=== PATIENT | male | born 1940 | race Caucasian/White ===

== ENCOUNTER 2018-03-20 19:44 | Inpatient (IN) | payer MEDICARE ==
[~2018-03-20] VITALS: Ht 175.3 cm; Wt 64.9 kg
[~2018-03-20 19:44] MED LIST: ACET325T53 PO; ALBU2.5V38 IH; ASPI-869 PO; BETH50TA PO; GLIP5TAB13 PO; LISI-607 PO; METF500T6 PO; PANT40TA4 PO; QUET25TA PO; QUET50TA PO; TAMS0.4C34 PO
[2018-03-20] MEDS ORDERED: IV NS 0.9% 1,000 ML BAG IV ONE (20:00)
--- NOTE | 2018-03-20 20:00 | NUR ---
BB AMBULANCE FROM [facility] C/C "UNWITNESSE GLF WITH NO OBVIOUS DEFORMITIES NOTED. PT IS AAOX1 AND CONFUSED AT BASELINE. SKIN WNL. VSS. NO S/S OF ACUTE DISTRESS NOTED. RESP EVEN AND UNLABORED. PT PLACED ON PLANT CONTROLS SPECIALIST AND POX. PT SAFETY AND COMFORT MEASURES IN PLACE. UNABLE TO ATTAIN MORE INFORMATION ON THE PT. MD BEDSIDE FOR EVAL. WILL CONTINUE TO MONITOR PT
[2018-03-20 20:20] LABS: BASOPHILS % (AUTO) 0.4 % (0.0-2.0); EOSINOPHILS % (AUTO) 3.3 % (0.0-6.0); HEMATOCRIT 34 % (39-51); HEMOGLOBIN 11.3 g/dL (13.5-17.5); LYMPHOCYTES # (AUTO) 1.1 /CMM (0.8-4.8); LYMPHOCYTES % (AUTO) 10.7 % (20.0-44.0); MEAN CORPUSCULAR HEMOGLOBIN 29 PG (26.0-33.0); MEAN CORPUSCULAR HGB CONC 34 g/dl (31.0-36.0); MEAN CORPUSCULAR VOLUME 87 fL (80-96); MONOCYTES # (AUTO) 0.8 /CMM (0.1-1.30); MONOCYTES % (AUTO) 7.1 % (2.0-12.0); NEUTROPHILS # (AUTO) 8.4 /CMM (1.8-8.9); NEUTROPHILS % (AUTO) 78.5 % (43.0-81.0); PLATELET COUNT (AUTO) 235 /CMM (150-450); RED BLOOD CELL COUNT(AUTO) 3.86 MIL/uL (4.5-6.0); WHITE BLOOD COUNT (AUTO) 10.7 K/uL (4.3-11.0)
[2018-03-20 20:37] LABS: CALCIUM, SERUM 8.8 mg/dL (8.5-10.1); CARBON DIOXIDE 27 mmol/L (21-32); CHLORIDE 104 mmol/L (98-107); CREATININE 0.7 mg/dL (0.6-1.3); GLUCOSE 123 mg/dL (74-106); INR 1.01 (0.85-1.15); SODIUM SERUM 135 mmol/L (136-145); UREA NITROGEN, BLOOD 19 mg/dL (7-18)
[2018-03-20 20:39] LABS: TROPONIN I < 0.017 ng/mL (0.00-0.056)
[2018-03-20] MEDS ORDERED: ALBUTEROL FS 2.5 MG/3 ML VIAL.NEB NEB PRN (21:30)
[2018-03-20] MEDS ORDERED: QUETIAPINE FUMARATE 25 MG TABLET PO PRN (21:30)
[2018-03-20] MEDS ORDERED: IV NS 0.9% 1,000 ML IV PRN (21:31)
[2018-03-20] MEDS ORDERED: Z GUARD REMEDY 2 OZ OINT TP PRN (22:00)
[2018-03-20] MEDS ORDERED: MAG HYDROX/AL HYDROX/SIMETH 30 ML UDC PO PRN (22:00)
[2018-03-20] MEDS ORDERED: HYDROCODONE/APAP 5/325MG 1 EACH TABLET PO PRN (22:00)
[2018-03-20] MEDS ORDERED: ONDANSETRON HCL/PF 4 MG/2 ML VIAL IVP PRN (22:00)
[2018-03-20] MEDS ORDERED: ZOLPIDEM TARTRATE 5 MG TABLET PO PRN (22:00)
[2018-03-20] MEDS ORDERED: ACETAMINOPHEN 325 MG TABLET PO PRN (22:00)
[2018-03-20] MEDS ORDERED: MAGNESIUM HYDROXIDE 30 ML UDC PO PRN (22:00)
--- NOTE | 2018-03-20 22:16 | NUR ---
REPORT GIVEN TO RATTLESNAKE FARMER HELEN FOR ROSIE
--- NOTE | 2018-03-20 22:46 | NUR ---
TELE/RN NOTES RECEIVED PT. FROM ER VIA BERT. PT. IS AWAKE, ALERT AND ORIENTED TO SELF. BREATHING EVEN AND UNLABORED ON ROOM AIR. NO SOB, RESPIRATORY DISTRESS OR COMPLAINTS OF PAIN NOTED AT THIS TIME. ORIENTED PT. TO ROOM. PLACED EXTERNAL CLOTH WEAVER ON PT. CURRENT RHYTHM = SINUS RHYTHM HR 68. PT. WITH RIGHT FOREARM 18 GAUGE IV SALINE LOCK PRESENT, PATENT AND INTACT. BED LOCKED AND IN LOWEST POSITION, SIDE RAILS UP X3, BED ALARM ON, WILL CONTINUE TO MONITOR.
[2018-03-20 22:50] VITALS: BP 150/83
[2018-03-20] MEDS: TAMSULOSIN 0.4 MG CAP.SR.24H PO SCH (23:08)
[2018-03-20] MEDS: QUETIAPINE FUMARATE 25 MG TABLET PO SCH (23:08)
[2018-03-20] MEDS: ENOXAPARIN SODIUM 40 MG/0.4 ML DISP.SYRIN SQ SCH (23:09)
--- NOTE | 2018-03-21 03:24 | NUR ---
TELE/RN NOTES CALLED AND NOTIFIED EPIC SLITTER CREASER SLOTTER OPERATOR DR. OLIVEIRA PT. IS VERY CONFUSED AND ATTEMPTING TO GET OUT OF BED. PER DR. OLIVEIRA NEW ORDER: 1:1 SITTER. WILL CARRY OUT ORDER. WILL CONTINUE TO MONITOR.
[2018-03-21 04:00] VITALS: BP 111/68
--- NOTE | 2018-03-21 07:01 | NUR ---
TELE/RN NOTES PT. IS LYING IN BED RESTING. PT. IS EASILY AROUSABLE TO NAME.BREATHING EVEN AND UNLABORED ON ROOM AIR. NO SOB, RESPIRATORY DISTRESS OR COMPLAINTS OF PAIN NOTED AT THIS TIME AND THROUGHOUT SHIFT. PT. WITH EXTERNAL SHEAR ASSEMBLER PRESENT AND INTACT CURRENT RHYTHM = SINUS RHYTHM HR 70. PT. WITH RIGHT FOREARM 18 GAUGE PERIPHERAL IV PRESENT, PATENT AND INTACT ADMINISTERING TO PT. NS @ 75 ML/HR. ALL PT. NEEDS MET. PT. WITH 1:1 SITTER PRESENT AT BEDSIDE. BED LOCKED AND IN LOWEST POSITION, SIDE RAILS UP X3, BED ALARM ON, WILL ENDORSE TO DAYSHIFT NURSE FOR CONTINUITY OF CARE.
[2018-03-21 07:18] LABS: BASOPHILS % (AUTO) 0.8 % (0.0-2.0); EOSINOPHILS % (AUTO) 7.1 % (0.0-6.0); HEMATOCRIT 30 % (39-51); HEMOGLOBIN 9.9 g/dL (13.5-17.5); LYMPHOCYTES # (AUTO) 1.1 /CMM (0.8-4.8); LYMPHOCYTES % (AUTO) 19.5 % (20.0-44.0); MEAN CORPUSCULAR HEMOGLOBIN 30 PG (26.0-33.0); MEAN CORPUSCULAR HGB CONC 33 g/dl (31.0-36.0); MEAN CORPUSCULAR VOLUME 89 fL (80-96); MONOCYTES # (AUTO) 0.4 /CMM (0.1-1.30); MONOCYTES % (AUTO) 7.3 % (2.0-12.0); NEUTROPHILS # (AUTO) 3.8 /CMM (1.8-8.9); NEUTROPHILS % (AUTO) 65.3 % (43.0-81.0); PLATELET COUNT (AUTO) 222 /CMM (150-450); RDW COEFFICIENT OF VARIATION 14.6 (11.5-15.0); RED BLOOD CELL COUNT(AUTO) 3.35 MIL/uL (4.5-6.0); WHITE BLOOD COUNT (AUTO) 5.9 K/uL (4.3-11.0)
[2018-03-21 07:42] LABS: CARBON DIOXIDE 26 mmol/L (21-32); CHLORIDE 107 mmol/L (98-107); CREATININE 0.7 mg/dL (0.6-1.3); GLUCOSE 90 mg/dL (74-106); MAGNESIUM 1.9 mg/dL (1.8-2.4); PHOSPHORUS 3.2 mg/dL (2.5-4.9); POTASSIUM 3.7 mmol/L (3.5-5.1); SODIUM SERUM 140 mmol/L (136-145); UREA NITROGEN, BLOOD 14 mg/dL (7-18)
[2018-03-21 07:52] LABS: CHOLESTEROL 144 mg/dL (<200); HDL CHOLESTEROL 49 mg/dL (40-60); LDL 87 mg/dL (0-99); THYROID STIMULATING HORMONE 3.962 uIU/mL (0.358-3.74); TRIGLYCERIDES 50 mg/dL (30-150)
[2018-03-21 08:00] VITALS: BP 113/65
--- NOTE | 2018-03-21 08:00 | NUR ---
TELE/RN AM NOTES PT. IS LYING IN BED RESTING. PT. IS EASILY AROUSABLE TO NAME.BREATHING EVEN AND UNLABORED ON ROOM AIR. NO SOB, RESPIRATORY DISTRESS OR COMPLAINTS OF PAIN NOTED.PT. WITH EXTERNAL LIQUOR RECTIFIER PRESENT AND INTACT CURRENT RHYTHM = SINUS RHYTHM HR 68. PT. WITH RIGHT FOREARM 18 GAUGE PERIPHERAL IV PRESENT, PATENT AND INTACT ADMINISTERING TO PT. NS @ 75 ML/HR. ALL PT. NEEDS ATTENDED.PT. WITH 1:1 SITTER PRESENT AT BEDSIDE. BED LOCKED AND IN LOWEST POSITION, SIDE RAILS UP X3, BED ALARM ON
[2018-03-21 08:16] LABS: IRON, SERUM 30 ug/dl (50-175); TOTAL IRON BINDING CAPACITY 194 ug/dl (250-450)
[2018-03-21] MEDS: BETHANECHOL CHLORIDE (25 MG) 25 MG TABLET PO SCH ×3 (08:24→17:40)
[2018-03-21] MEDS: glipiZIDE 5 MG TABLET PO SCH (08:25)
[2018-03-21] MEDS: ASPIRIN EC 325 MG TABLET.DR PO SCH (08:25)
[2018-03-21] MEDS: LISINOPRIL (5MG) 5 MG TABLET PO SCH (08:25)
[2018-03-21] MEDS: METFORMIN 500 MG TABLET PO SCH ×2 (08:25→17:40)
[2018-03-21 09:57] LABS: FERRITIN 316 ng/mL (8-388); TROPONIN I < 0.017 ng/mL (0.00-0.056)
[2018-03-21] MEDS: IV NS 0.9% 1,000 ML IV PRN ×2 (11:22→21:51)
[2018-03-21 12:00] VITALS: BP 121/64
[2018-03-21 16:00] VITALS: BP 132/69
--- NOTE | 2018-03-21 19:56 | NUR ---
MS FRANCY INITIAL NOTES SEEN PT AWAKE AND ALERT LYING IN BED WITHOUT ANY DISCOMFORT OR ANY AGITATION NOTED AT THIS TIME. IVF NS INFUSING ON HIS RIGHT FOREARM PATENT AND INTACT. KEPT HIM WARM AND COMFORTABLE AT ALL TIMES. WILL CONTINUE MONITORING. SITTER AT THE BEDSIDE FOR PT SAFETY.
[2018-03-21 20:00] VITALS: BP_SYST 110; BP_SYST 124; BP_SYST 133; BP_DIAS 60; BP_DIAS 68; BP_DIAS 70
[2018-03-21] MEDS: TAMSULOSIN 0.4 MG CAP.SR.24H PO SCH (21:41)
[2018-03-21] MEDS: QUETIAPINE FUMARATE 25 MG TABLET PO SCH (21:42)
[2018-03-21] MEDS: ENOXAPARIN SODIUM 40 MG/0.4 ML DISP.SYRIN SQ SCH (22:07)
[2018-03-22] MEDS: IV NS 0.9% 1,000 ML IV PRN ×2 (06:20→21:31)
--- NOTE | 2018-03-22 07:00 | NUR ---
MS FLIGHT OPERATIONS SPECIALIST CLOSING NOTES PT BAKC TO SLEEP AFTER MORNING CARE DONE WITH THE HELPED OF SITTER . SLEEP WELL AND NO AGITATION NOTED. BREATHINGE EVEN AND NON-LABORED, NOT IN ANY ACUTE DISTRESS NOTED. IVF STILL INFUSING . KEPT HIM WARM AND COMFORTABLE AT ALL TIMES. SITTER AT THE BEDSIDE FOR SAFETY. ENDORSE TO AM NURSE.
--- NOTE | 2018-03-22 07:26 | NUR ---
MS RN OPENING NOTES RECEIVED PATIENT IN NO APPARENT DISTRESS. BEDSIDE RAILS ARE UPX2. BED IS LOCKED AND LOWERED. CALL LIGHT IS WITHIN REACH. IV LINE IS INTACT AND PATENT. WILL CONTINUE TO MONITOR.
[2018-03-22 08:00] VITALS: BP 133/74
[2018-03-22 08:00] LABS: BASOPHILS % (AUTO) 0.5 % (0.0-2.0); EOSINOPHILS % (AUTO) 5.1 % (0.0-6.0); HEMATOCRIT 31 % (39-51); HEMOGLOBIN 10.2 g/dL (13.5-17.5); LYMPHOCYTES % (AUTO) 16.3 % (20.0-44.0); MEAN CORPUSCULAR HEMOGLOBIN 30 PG (26.0-33.0); MEAN CORPUSCULAR HGB CONC 33 g/dl (31.0-36.0); MEAN CORPUSCULAR VOLUME 89 fL (80-96); MONOCYTES # (AUTO) 0.6 /CMM (0.1-1.30); MONOCYTES % (AUTO) 8.9 % (2.0-12.0); NEUTROPHILS # (AUTO) 4.4 /CMM (1.8-8.9); NEUTROPHILS % (AUTO) 69.2 % (43.0-81.0); PLATELET COUNT (AUTO) 209 /CMM (150-450); RDW COEFFICIENT OF VARIATION 14.7 (11.5-15.0); RED BLOOD CELL COUNT(AUTO) 3.45 MIL/uL (4.5-6.0); WHITE BLOOD COUNT (AUTO) 6.3 K/uL (4.3-11.0)
[2018-03-22] MEDS: METFORMIN 500 MG TABLET PO SCH ×2 (08:04→17:15)
[2018-03-22] MEDS: ASPIRIN EC 325 MG TABLET.DR PO SCH (08:04)
[2018-03-22] MEDS: glipiZIDE 5 MG TABLET PO SCH (08:04)
[2018-03-22] MEDS: LISINOPRIL (5MG) 5 MG TABLET PO SCH (08:05)
[2018-03-22] MEDS: BETHANECHOL CHLORIDE (25 MG) 25 MG TABLET PO SCH ×3 (08:05→17:15)
[2018-03-22 08:22] LABS: TROPONIN I < 0.017 ng/mL (0.00-0.056)
[2018-03-22 10:00] VITALS: BP_SYST 100; BP_SYST 103; BP_SYST 148; BP_DIAS 56; BP_DIAS 60; BP_DIAS 80
[2018-03-22 12:11] LABS: ALANINE AMINOTRANSFERASE 15 U/L (12-78); ALBUMIN 2.4 g/dL (3.4-5.0); ALKALINE PHOSPHATASE 53 U/L (46-116); ASPARTATE AMINOTRANSFERASE 14 U/L (15-37); BILIRUBIN,TOTAL 0.8 mg/dL (0.2-1.0); CALCIUM, SERUM 7.8 mg/dL (8.5-10.1); CARBON DIOXIDE 26 mmol/L (21-32); CHLORIDE 106 mmol/L (98-107); CREATININE 0.8 mg/dL (0.6-1.3); GLUCOSE 61 mg/dL (74-106); MAGNESIUM 1.8 mg/dL (1.8-2.4); PHOSPHORUS 3.3 mg/dL (2.5-4.9); POTASSIUM 3.6 mmol/L (3.5-5.1); SODIUM SERUM 141 mmol/L (136-145); TOTAL PROTEIN, SERUM 6.5 g/dL (6.4-8.2); UREA NITROGEN, BLOOD 13 mg/dL (7-18)
[2018-03-22 16:00] VITALS: BP 117/50
--- NOTE | 2018-03-22 18:19 | NUR ---
MS RN CLOSING NOTES PATIENT IS RESTING IN NO APPARENT DISTRESS. BEDSIDE RAILS ARE UPX2. BED IS LOCKED AND LOWERED. CALL LIGHT IS WITHIN REACH. IV LINE IS INTACT AND PATENT. ALL NEEDS WERE MET. WILL ENDORSE CARE TO SECURITY AND COMPLIANCE ANALYST NURSE FOR ROSIE.
--- NOTE | 2018-03-22 19:35 | NUR ---
MS RN OPENING NOTES RECEIVED PATIENT IN BED, A & O X 1-2 WITH FORGETFULNESS/CONFUSION. NO APPARENT DISTRESS. ON RA SATTING WELL. NO S/S OF PAIN NOTED. BEDSIDE RAILS ARE UP X 2. IV ACCESS TO RFA, INTACT PATENT, RUNNING WITH IVF ORDERED. INCONTINENT, USES DIAPER. BED IS LOCKED AND LOWERED. BED ALARM ON. PLACED IN ROOM NEAR TO THE STATION FOR CLOSE MONITORING DUE TO CONFUSION/FORGETFULNESS. CALL LIGHT IS WITHIN REACH. WILL CONTINUE TO MONITOR CLOSELY.
[2018-03-22 20:00] VITALS: BP 139/67
[2018-03-22] MEDS: TAMSULOSIN 0.4 MG CAP.SR.24H PO SCH (21:29)
[2018-03-22] MEDS: QUETIAPINE FUMARATE 25 MG TABLET PO SCH (21:29)
[2018-03-22] MEDS: ENOXAPARIN SODIUM 40 MG/0.4 ML DISP.SYRIN SQ SCH (21:31)
[2018-03-22 22:00] VITALS: BP_SYST 121; BP_SYST 124; BP_SYST 129; BP_DIAS 66; BP_DIAS 70
[2018-03-23 06:34] LABS: EOSINOPHILS % (AUTO) 0.4 % (0.0-6.0); HEMATOCRIT 28 % (39-51); HEMOGLOBIN 9.4 g/dL (13.5-17.5); LYMPHOCYTES # (AUTO) 0.7 /CMM (0.8-4.8); LYMPHOCYTES % (AUTO) 6.8 % (20.0-44.0); MEAN CORPUSCULAR HEMOGLOBIN 30 PG (26.0-33.0); MEAN CORPUSCULAR HGB CONC 33 g/dl (31.0-36.0); MEAN CORPUSCULAR VOLUME 89 fL (80-96); MONOCYTES # (AUTO) 0.9 /CMM (0.1-1.30); MONOCYTES % (AUTO) 8.5 % (2.0-12.0); NEUTROPHILS # (AUTO) 8.8 /CMM (1.8-8.9); NEUTROPHILS % (AUTO) 84.3 % (43.0-81.0); PLATELET COUNT (AUTO) 189 /CMM (150-450); RDW COEFFICIENT OF VARIATION 14.8 (11.5-15.0); RED BLOOD CELL COUNT(AUTO) 3.17 MIL/uL (4.5-6.0); WHITE BLOOD COUNT (AUTO) 10.5 K/uL (4.3-11.0)
[2018-03-23 06:42] LABS: CARBON DIOXIDE 26 mmol/L (21-32); CHLORIDE 105 mmol/L (98-107); CREATININE 0.7 mg/dL (0.6-1.3); MAGNESIUM 1.6 mg/dL (1.8-2.4); POTASSIUM 3.3 mmol/L (3.5-5.1); SODIUM SERUM 140 mmol/L (136-145); UREA NITROGEN, BLOOD 18 mg/dL (7-18)
[2018-03-23 06:52] LABS: GLUCOSE 36 mg/dL (74-106)
[2018-03-23] MEDS ORDERED: DEXTROSE 50%-WATER 50 ML DISP.SYRIN ONE (07:00)
--- NOTE | 2018-03-23 07:00 | NUR ---
MSRN OPENING NOTES. PT RECEIVED A&0X1, CONVERSATIONAL AND ABLE TO MAKE NEEDS KNOWN. PT TOLERATING ROOM AIR WITHOUT DISTRESS. PT DENIES PAIN. PT HYPOGLYCEMIC AND NIGHT NURSE ADMINISTERING DEXTROSE PER PROTOCOL. PT WITH IVC AT RFA G#18 INTACT AND OPERATIONAL WITH FLUIDS PER RX. PT BED IN LOWEST LOCKED POSITION WITH HNADRAILSX2 AND CALL ALMANZAR WITHIN REACH AND BED ALARM ON. PT BRIEFED ON TODAY'S POC AND IS WITHOUT CONCERN OR COMPLAINT AT THIS TIME, WILL REORIENTATE WHEN/IF NECESSARY.
--- NOTE | 2018-03-23 07:05 | NUR ---
LOW BS LEVEL ACCOUNT STRATEGIST CALLED TO INFORM CRITICAL LAB RESULT OF BS LEVEL 36, PT FULLY AWAKE, ABLE TO FOLLOW DIRECTIONS, GAVE ORANGE JUICE PO, TOLERATED WELL. RECHECKED BS, NOTED TO BE 42. MD MADE AWARE WITH NEW ORDER. NOTED & CARRIED OUT. CHARGE NURSE MADE AWARE. WILL FOLLOW MD'S ORDER TO GIVE DEXTROSE 50% ORDERED.
--- NOTE | 2018-03-23 07:10 | NUR ---
MS RN NOTE DEXTROSE 50% GIVEN ORDERED, WILL RECHECK BS LEVEL PER PROTOCOL.
[2018-03-23] MEDS: glipiZIDE 5 MG TABLET PO SCH (07:30)
--- NOTE | 2018-03-23 07:30 | NUR ---
MS RN CLOSING NOTES PT SLEPT WELL @ NIGHT. A & O X 1-2 WITH FORGETFULNESS/CONFUSION. NO APPARENT DISTRESS. ON RA SATTING WELL. NO S/S OF PAIN NOTED. BEDSIDE RAILS ARE UP X 2. IV ACCESS TO RFA, INTACT PATENT, RUNNING WITH IVF ORDERED. INCONTINENT, USES DIAPER. RECHECKED BS AFTER GIVING DEXTROSE 50%, NOTED TO BE 132. PT FULLY AWAKE, TALKATIVE. NO ACUTE CHANGES NOTED, BED IS LOCKED AND LOWERED. BED ALARM ON. PLACED IN ROOM NEAR TO THE STATION FOR CLOSE MONITORING DUE TO CONFUSION/FORGETFULNESS. CALL LIGHT IS WITHIN REACH. ENDORSED TO AM RN TO MONITOR THE PT CLOSELY.
[2018-03-23] MEDS: METFORMIN 500 MG TABLET PO SCH ×2 (07:50→17:22)
--- NOTE | 2018-03-23 07:51 | NUR ---
REdwige. AM BLOOS SUGAR REGULATION MEDICATIONS HELD R/T: AM HYPOGLYCEMIA.
--- NOTE | 2018-03-23 07:55 | NUR ---
MSRN NOTES. PT ATTEMPTING TO CLIMB OUT OF BED, CONFUSED AND UNSTABLE. RESPONSIVE TO RE ORIENTATION. PT RETURNED, DIAPER CHANGED AND PROVIDED WITH SNACKS. PT BED ALARM ON. NEEDS MET AND PT COMFORTABLE. REQUESTED TO CALL FOR ASSISTANCE AND NOT AMBULATE.
[2018-03-23 08:00] VITALS: BP 144/72
[2018-03-23 08:08] VITALS: BP_SYST 122; BP_SYST 135; BP_SYST 144; BP_DIAS 75; BP_DIAS 81; BP_DIAS 82
--- NOTE | 2018-03-23 08:30 | NUR ---
MSRN NOTES. PT ATTEMPTING TO CLIMB OUT OF BED, CONFUSED AND UNSTABLE. RESPONSIVE TO RE ORIENTATION. PT RETURNED AND MADE COMFORTABLE. AGAIN REQUESTED TO CALL FOR ASSISTANCE. PROVIDED FLUIDS. BED ALARM ENGAGED.
[2018-03-23] MEDS: BETHANECHOL CHLORIDE (25 MG) 25 MG TABLET PO SCH ×3 (08:48→17:32)
[2018-03-23] MEDS: ASPIRIN EC 325 MG TABLET.DR PO SCH (08:48)
[2018-03-23] MEDS: LISINOPRIL (5MG) 5 MG TABLET PO SCH (08:49)
[2018-03-23] MEDS: IV NS 0.9% 1,000 ML IV PRN (09:06)
--- NOTE | 2018-03-23 09:25 | NUR ---
MSRN NOTES. PT ATTEMPTING TO CLIMB OUT OF BED, CONFUSED AND UNSTABLE. RESPONSIVE TO RE ORIENTATION. PT RETURNED AND MADE COMFORTABLE. AGAIN REQUESTED TO CALL FOR ASSISTANCE. BED ALARM ENGAGED.
[2018-03-23] MEDS ORDERED: POTASSIUM CHLORIDE 20 MEQ TAB.PRT.SR PO ONE (09:30)
--- NOTE | 2018-03-23 09:48 | NUR ---
WOUND CARE CONSULT: PT PRESENTS WITH INCONTINENCE. PT AGITATED AT TIMES. RECOMMENDATIONS MADE FOR SKIN PROTECTION AND DISCUSSED WITH NURSING STAFF. WILL SEE PRN. CUBA IN AGREEMENT WITH PLAN OF CARE. Addendum: 03/23/18 at 0949 by RADHA XAVIER WNDNU Amended: Links added.
[2018-03-23] MEDS ORDERED: Magnesium 1GM/D5W 100ML PREMIX 100 ML IV SCH (09:52)
--- NOTE | 2018-03-23 09:55 | NUR ---
MSRN NOTES. PT PULLED OUT IVC. NAD AT SITE, COMPRESSION AND BANDAGE APPLIED.
--- NOTE | 2018-03-23 10:00 | NUR ---
MSRN NOTES. CN ASSIGNED PT TO 1:1 FOR PT SAFETY.
[2018-03-23] MEDS: IV NS 0.9% 1,000 ML IV SCH (10:42)
[2018-03-23] MEDS: POTASSIUM CHLORIDE 20 MEQ TAB.PRT.SR PO SCH ×2 (10:43→11:31)
[2018-03-23] MEDS: Magnesium 1GM/D5W 100ML PREMIX 100 ML IV SCH ×2 (10:47→11:31)
[2018-03-23] MEDS ORDERED: LORAZEPAM INJ 2 MG/ML VIAL IV ONE (12:00)
[2018-03-23] MEDS ORDERED: DEXTROSE 50%-WATER 50 ML DISP.SYRIN IV PRN (12:00)
[2018-03-23] MEDS ORDERED: INSULIN REGULAR, HUMAN 100 UNIT/ML 3 ML VIAL SQ PRN (12:00)
[2018-03-23] MEDS ORDERED: *INSULIN REGULAR(HUMULIN R)HUM 100 UNIT/ML VIAL SQ PRN (12:00)
[2018-03-23] MEDS: BLOOD SUGAR DIAGNOSTIC 1 EACH STRIP VI SCH ×3 (12:38→21:52)
[2018-03-23 12:40] VITALS: BP 137/71
--- NOTE | 2018-03-23 12:45 | NUR ---
MSRN NOTES. PT BECAME AGITATED DURING DIAPER CHANGE STARTED SCREAMING, HITTING AND TRYING TO KICK. PT DID NOT RESPOND TO CALM REASSURANCE OR REORIENTATION, AGITATION ESCALATED AND PT PUSHED PAST RNX2 AND TRIED TO BREAK WINDOW WITH FIST AND CURTAIN RAMÍREZ. PT SCREAMING HE WAS ABOUT TO BE KILLED. SECURITY AND RN ASSISTED PT BACK TO BED. MD HAMMER CALLED FOR PRN. PRN ATIVAN 1MG ADMINISTERED AND PT NOW RESTING. PT AND STAFF NOT INJURED DURING EVENT. VITALS WNL.
--- NOTE | 2018-03-23 13:15 | NUR ---
MSRN NOTES. PT IV ALARMED, INFILTRATION NOTED AT IVC SITE. SMALL SWELLING. PT REFUSING COMPRESSION. IVC D/C. IN IVC PLACED R FA G#20 AND SALINE FLUSH PATENT.
--- NOTE | 2018-03-23 14:04 | NUR ---
MSRN. CARE ENDORSED TO NURSE LONGORIA AT BEDSIDE FOR ROSIE.
--- NOTE | 2018-03-23 14:30 | NUR ---
m/s surveying crew rodman: notes pt remains confused and hard to control behavior, pt remains uncooperative, but no aggression noted. reality orientation provided prn. pt still attempting to pull iv, pt still not connected to iv fluids due to pulling lines. reality orientation provided prn. awaiting for psychiatrist. will continue to monitor.
[2018-03-23] MEDS: SOD FERRIC GLUC 125 MG in IV NS 0.9% 100 ML IV SCH (14:41)
--- NOTE | 2018-03-23 14:42 | NUR ---
FERRLICIT ADMINISTERED PER ORDERS. ENDORSED TO JAIME SEN
--- NOTE | 2018-03-23 15:45 | NUR ---
m/s np: psych consult pt remains confused and disoriented; pt has been speaking in armenian when received, but now pt started speaking in iranian. pt still hard to control his behavior, pt uncooperative, pt keeps getting up and about. assisted to bathroom, gait unsteady, peed all over the floor. here to evaluate pt and aware of pt's behavior. pt continued to pee on the floor. called housekeeping. reality orientation provided prn. continue on 1:1 sitter for safety. all linen change. assisted back to bed. will continue to monitor. Addendum: 03/23/18 at 1613 by JAIME CHOIN correction on above charting, pt urinated all over the floor and continued to do so despite reality orientation provided prn.
[2018-03-23 16:00] VITALS: BP 113/65
--- NOTE | 2018-03-23 16:50 | NUR ---
m/s tomographic tech: notes pt remains uncooperative, walking in hallway and attempting to go to other rooms. redirected and reality orientation provided prn. no aggression noted at this time, but pt still difficulty to control behavior. continue on 1:1 for safety. will continue to monitor.
--- NOTE | 2018-03-23 17:22 | NUR ---
m/s manager production: notes held glucophage due to bs=97. pt remains erratic despite reality orientation provided in wolof and paraguayan prn. pt continue on 1:1. will continue to monitor.
--- NOTE | 2018-03-23 18:00 | NUR ---
m/s college basketball coach: notes pt remains erratic, hard to control behavior, unable to comprehend and follow simple instructions despite education and reality orientation provided prn. pt still refusing to wear diaper, pt able to go to bathroom with assistance, gait unsteady. pt still attempting to pull iv, unable to run iv fluids. continue on 1:1 sitter for safety. will continue to monitor.
--- NOTE | 2018-03-23 18:35 | NUR ---
m/s image assembler: notes assisted to bathroom, gait remains unsteady, pt refused to use urinal when offered, pt urinated in the toilet and bathroom floor once more. disinfected by housekeeping. pt unable to comprehend, behavior remains erratic. reality orientation provided prn. will continue to monitor.
--- NOTE | 2018-03-23 19:25 | NUR ---
MS RN OPENING NOTES RECEIVED PATIENT IN BED, A & O X 1-2 WITH FORGETFULNESS/CONFUSION. NO APPARENT DISTRESS. ON RA SATTING WELL. NO S/S OF PAIN NOTED. BEDSIDE RAILS ARE UP X 2. IV ACCESS TO RFA, INTACT PATENT. INCONTINENT, USES DIAPER & URINAL @ TIMES. 1:1 SITTER IN NEXT TO THE BED FOR SAFETY. ATTEMPTS TO GET OOB BY HIMSELF @ TIMES. PT HAD BEHAVIORAL EPISODE IN AM SHIFT. BED IS LOCKED AND LOWERED. BED ALARM ON. CALL LIGHT IS WITHIN REACH. WILL CONTINUE TO MONITOR CLOSELY.
[2018-03-23] MEDS: TAMSULOSIN 0.4 MG CAP.SR.24H PO SCH (21:50)
[2018-03-23] MEDS: ENOXAPARIN SODIUM 40 MG/0.4 ML DISP.SYRIN SQ SCH (21:54)
[2018-03-23] MEDS ORDERED: QUETIAPINE FUMARATE 100 MG TABLET PO SCH (22:00)
[2018-03-23] MEDS: MUPIROCIN OINT 2% 22 GM TUBE SCH (22:01)
--- NOTE | 2018-03-23 22:58 | NUR ---
NEW ORDER RECEIVED NEW ORDER TO GIVE HALDOL IM ORDERED. NOTED & CARRIED OUT.
--- NOTE | 2018-03-23 23:10 | NUR ---
prn haldol given pt noted to be very aggressive towards staff, swinging his hands, tried to bite the nurse. md was notified with new order, prn haldol given as ordered. on 1:1 sitter for close monitoring. will reassess the pt accordingly.
[2018-03-23] MEDS ORDERED: HALOPERIDOL LACTATE INJ 5 MG/ML VIAL IM ONE (23:30)
--- NOTE | 2018-03-24 01:28 | NUR ---
NEW HALDOL ORDER PT CONTINUED TO BE AGITATED TOWARDS STAFF, RE FARRAR VISITED THE UNIT, INFORMED HIM ABOUT PT'S AGITATION. REGIONAL BRANCH MANAGER ORDERED ANOTHER DOSE OF HALDOL 5MG IM PRN ONCE ONLY. WILL MONITOR THE PT FOR NEED OF HALDOL, WILL GIVE IM HALDOL ORDERED IF PT CONTINUOS TO BE AGITATED. ON 1:1 SITTER FOR SAFETY.
[2018-03-24] MEDS ORDERED: HALOPERIDOL DECANOATE IM 100 MG/ML AMPUL IM PRN (01:30)
[2018-03-24] MEDS ORDERED: HALOPERIDOL DECANOATE IM 100 MG/ML AMPUL IM ONE (01:30)
--- NOTE | 2018-03-24 01:54 | NUR ---
MS RN NOTE PT IS SLEEPING @ THIS TIME, NO SECOND DOSE OF HALDOL PRN GIVEN. ON 1:1 CLOSE MONITORING.
--- NOTE | 2018-03-24 02:00 | NUR ---
CLARIFIED ORDER WITH PHARMACY AFTER PLACING THE ORDER FOR HALDOL, CLARIFIED WITH SOMEONE @ PHARMACY THAT WHICH HALDOL NEEDS TO BE GIVEN, HALDOL LACTATE IM INJ IS THE RIGHT MED TO GIVE PER PHARMACY PERSON & ORDER WAS ADJUSTED ACCORDINGLY. HALDOL LACTATE WAS GIVEN IM THE FIRST TIME, NOT HALDOL DECANOATE WAS GIVEN. PHARMACY MADE AWARE.
--- NOTE | 2018-03-24 03:49 | NUR ---
BS CHECKED BS CHECKED & NOTED TO BE 87MG/DL. WILL TRY TO GIVE SNACK TO THE PT. SLEEPING INTERMITTENTLY, REFUSES IVF WELL.
[2018-03-24] MEDS ORDERED: HALOPERIDOL LACTATE INJ 5 MG/ML VIAL IM PRN (04:00)
--- NOTE | 2018-03-24 04:04 | NUR ---
PRN ONCE DOSE OF HALDOL GIVEN PT AGAIN BECAME VERY AGGRESSIVE TOWARDS STAFF, SWINGING HIS ARMS, ATTEMPTING TO HIT & PUSH STAFF MULTIPLE TIMES, THREW HIS WET GOWN WITH URINE ON NURSE. PT WANTED TO GET UP & WALK ON HIS OWN WITH VERY UNSTEADY GAIT/BALANCE, HAS HX OF FALL PREVIOUSLY. ESTATE AGENT CHARAN ORDERED EARLIER TO GIVE HALDOL SECOND TIME PRN ONCE ONLY FOR INCREASED AGITATION. MED GIVEN IM ORDERED. 1:1 SITTER @ BED SIDE. WILL MONITOR CLOSELY.
[2018-03-24] MEDS: IV NS 0.9% 1,000 ML IV SCH (05:20)
[2018-03-24] MEDS: BLOOD SUGAR DIAGNOSTIC 1 EACH STRIP VI SCH ×2 (06:56→11:49)
[2018-03-24] MEDS: glipiZIDE 5 MG TABLET PO SCH (07:30)
--- NOTE | 2018-03-24 07:30 | NUR ---
MS RN CLOSING NOTES PT DIDN'T SLEEP WELL @ NIGHT, AGITATED. A & O X 1-2 WITH FORGETFULNESS/CONFUSION. NO APPARENT DISTRESS. ON RA SATTING WELL. NO S/S OF PAIN NOTED. BEDSIDE RAILS ARE UP X 2. IV ACCESS TO LFA, INTACT PATENT. INCONTINENT, USES DIAPER & URINAL @ TIMES. 1:1 SITTER IN NEXT TO THE BED FOR SAFETY. REFUSES IVF. PT FELL ASLEEP AFTER SECOND DOSE OF HALDOL LACTATE WAS GIVEN WHEN PT WAS VERY AGITATED. BED IS LOCKED AND LOWERED. BED ALARM ON. CALL LIGHT IS WITHIN REACH. ENDORSED TO AM RN.
--- NOTE | 2018-03-24 07:42 | NUR ---
RN OPENING NOTES RECEIVED PT. PT STABLE, SLEEPING IN BED. NO S/S OF RESP DISTRESS OR SOB. PT DOES NOT APPEAR TO BE IN PAIN. 1:1 SITTER BEDSIDE. CONTACT PRECAUTIONS IN PLACE. PER ACADEMIC AFFAIRS MANAGER REPORT, PT BECOMES VERY AGITATED/COMBATIVE/NON-COMPLIANT WHEN AWAKE, REQUIRING PRN ANTI-ANXIETY MEDICATION. PRN HALDOL 5MG GIVEN X 2, HOWEVER, PER ACADEMIC AFFAIRS MANAGER REPORT, HALDOL WAS INEFFECTIVE IN CONTROLLING ANXIETY. SAFETY MEASURES IN PLACE, CALL LIGHT WITHIN REACH. WILL CONTINUE TO MONITOR.
[2018-03-24 08:00] VITALS: BP 122/86
[2018-03-24] MEDS: METFORMIN 500 MG TABLET PO SCH (08:00)
[2018-03-24 08:16] VITALS: BP_SYST 114; BP_SYST 122; BP_SYST 140; BP_DIAS 80; BP_DIAS 84; BP_DIAS 86
[2018-03-24 08:19] LABS: BASOPHILS % (AUTO) 0.5 % (0.0-2.0); EOSINOPHILS % (AUTO) 7.5 % (0.0-6.0); HEMATOCRIT 33 % (39-51); HEMOGLOBIN 10.8 g/dL (13.5-17.5); LYMPHOCYTES # (AUTO) 1.2 /CMM (0.8-4.8); LYMPHOCYTES % (AUTO) 17.5 % (20.0-44.0); MEAN CORPUSCULAR HEMOGLOBIN 29 PG (26.0-33.0); MEAN CORPUSCULAR HGB CONC 33 g/dl (31.0-36.0); MEAN CORPUSCULAR VOLUME 89 fL (80-96); MONOCYTES # (AUTO) 0.7 /CMM (0.1-1.30); MONOCYTES % (AUTO) 10.4 % (2.0-12.0); NEUTROPHILS # (AUTO) 4.4 /CMM (1.8-8.9); NEUTROPHILS % (AUTO) 64.1 % (43.0-81.0); PLATELET COUNT (AUTO) 227 /CMM (150-450); RDW COEFFICIENT OF VARIATION 15.4 (11.5-15.0); WHITE BLOOD COUNT (AUTO) 6.8 K/uL (4.3-11.0)
[2018-03-24 08:31] LABS: CALCIUM, SERUM 8.4 mg/dL (8.5-10.1); CARBON DIOXIDE 28 mmol/L (21-32); CHLORIDE 106 mmol/L (98-107); CREATININE 0.7 mg/dL (0.6-1.3); GLUCOSE 96 mg/dL (74-106); MAGNESIUM 1.8 mg/dL (1.8-2.4); POTASSIUM 4.3 mmol/L (3.5-5.1); SODIUM SERUM 140 mmol/L (136-145); UREA NITROGEN, BLOOD 10 mg/dL (7-18)
[2018-03-24] MEDS: ASPIRIN EC 325 MG TABLET.DR PO SCH (08:45)
[2018-03-24] MEDS: BETHANECHOL CHLORIDE (25 MG) 25 MG TABLET PO SCH ×2 (08:45→13:51)
[2018-03-24] MEDS: MUPIROCIN OINT 2% 22 GM TUBE SCH (08:46)
[2018-03-24] MEDS: LISINOPRIL (5MG) 5 MG TABLET PO SCH (08:46)
--- NOTE | 2018-03-24 08:50 | NUR ---
RN NOTES PER TECHNOLOGY INFUSION SPECIALIST REPORT, PT BLOOD SUGAR DROPPED SIGNIFICANTLY ON 03/23 FOLLOWING ADMIN OF DM PO MEDICATIONS. AM BS TAKEN AT 96, 0900 METFORMIN AND GLUCOTROL HELD. WILL CONTINUE TO MONITOR.
[2018-03-24] MEDS ORDERED: MUPI22OI7 (10:29)
[2018-03-24] MEDS ORDERED: QUET100T PO ×2 (10:29→17:14)
[2018-03-24] MEDS: SOD FERRIC GLUC 125 MG in IV NS 0.9% 100 ML IV SCH (14:00)
[2018-03-24 15:18] VITALS: BP 145/76
[2018-03-24] MEDS ORDERED: MUPI22OI2 TP (17:14)
[2018-03-24] MEDS ORDERED: MAGN400O6 PO (17:14)
[2018-03-24] MEDS ORDERED: MAG30ORA GT (17:14)
[2018-03-24] MEDS ORDERED: ENOX40DI SQ (17:14)
[2018-03-24] MEDS ORDERED: HYDR-552 PO (17:14)
[2018-03-24] MEDS ORDERED: ZOLP5TAB8 PO (17:14)
[2018-03-24] MEDS ORDERED: INSU100V3 SQ (17:14)
--- NOTE | 2018-03-24 17:28 | NUR ---
DISCHARGE NOTE PT DISCHARGED TO [facility]. PT STABLE, REMAINS CONFUSED A/OX1. RESPIRATIONS EVEN AND UNLABORED, O2 SAT WNL. NO C/O PAIN AT THIS TIME. DISCHARGE INSTRUCTIONS/EXIT CARE PROVIDED TO CONTINUING CARE RN AT [facility]. PT UNABLE TO COMPREHEND D/C TEACHING AND UNABLE TO SIGN D/C INSTRUCTIONS/BELONGINGS LIST. SECOND LICENSED NURSE COSIGN FOR D/C INSTRUCTIONS AND BELONGINGS. WOUND PHOTO DOCUMENTATION TAKEN AND PLACED IN CHART. IV ACCESS AND ID BAND REMOVED. REPORT GIVEN TO ANDREW CALDERON OF [facility]. PT WAS TAKEN DOWN TO THE UNIT VIA WHEELCHAIR.
== END 2018-03-24 16:48 | DRG 73 ==
LOC: ER 19:45 → TELE 21:19 → MED 03-21 09:23
DX: G90.8 Other disorders of autonomic nervous system (principal); N17.0 Acute kidney failure with tubular necrosis; I10 Essential (primary) hypertension; E03.9 Hypothyroidism, unspecified; E11.65 Type 2 diabetes mellitus with hyperglycemia; F03.90 Unspecified dementia, unspecified severity, without behavioral disturbance, psychotic disturbance, mood disturbance, and anxiety; D63.8 Anemia in other chronic diseases classified elsewhere; E83.42 Hypomagnesemia; E87.6 Hypokalemia; F20.9 Schizophrenia, unspecified; Z79.84 Long term (current) use of oral hypoglycemic drugs; F29 Unspecified psychosis not due to a substance or known physiological condition; I95.1 Orthostatic hypotension; W18.30XA Fall on same level, unspecified, initial encounter; Y93.9 Activity, unspecified; Y92.129 Unspecified place in nursing home as the place of occurrence of the external cause; E11.649 Type 2 diabetes mellitus with hypoglycemia without coma
CPT/HCPCS: 36415; 70450-TC; 71045-TC; 72125-TC; 80048-TC; 80053-TC; 80061-TC; 82728-TC; 82962-TC; 83540-TC; 83735-TC; 84100-TC; 84443-TC; 84484-TC; 85025-TC; 85730-TC; 87081-TC; 93307-TC; A4606; J1630; J1631; J1650; J1815; J2060; J2916; J3475; J7030; J7042; Z7610

== ENCOUNTER 2018-03-24 15:04 | Inpatient (IN) | payer MEDICARE ==
[~2018-03-24] VITALS: Ht 175.3 cm; Wt 64.4 kg
[~2018-03-24 15:04] MED LIST changes: +MUPI22OI7; +QUET100T PO
--- NOTE | 2018-03-24 16:45 | NUR ---
PT WAS ADMITTED TO [facility] AT 1645 FROM MED SURG. REPORT WAS GIVEN BY VIOLET CALDERON. PT IS ON 5150 FOR GD WRITTEN 03/24/18 @1100. PER HOLD, PT IS COMBATIVE, HITTING STAFF AT THE FACILITY HE RESIDES, AGITATED AND NON-COMPLIANT. PT WAS ESCORTED TO UNIT VIA WHEELCHAIR ACCOMPANIED BY YUMIKO LAZO AND ONE OTHER STAFF. PT IS A&OX1, CONFUSED, DISORIENTED, DISORGANIZED, DENIES SI/HI AT THIS TIME. PT IS AT INCREASED RISK FOR FALLS, INTERVENTIONS IMPLEMENTED, SIDE RAILS X2, BED IN LOW POSITION, ALARM SET. PT WAS COMPLIANT WITH BODY CHECK, SCABS TO BILATERAL LEGS, PICTURES TAKEN AND PLACED IN THE CHART. PT REFUSED TO SIGN ALL PAPERWORK. ALL BELONGINGS HAVE BEEN CHECKED AND STORED. PT IS ON ISOLATION PRECAUTIONS FOR MRSA OF NARES. VS: 156/91, 97, 98.1, 18, 95% RA, 0/10 PAIN. WILL CONTINUE TO MONITOR Q15 MINS FOR SAFETY AND BEHAVIOR. Addendum: 03/24/18 at 1838 by ANDREW LEGGETT RN CALLED DR. MARKS TO NOTIFY OF NEW ADMISSION AND MED RECON TO BE DONE, PENDING RETURNED PHONE CALL
[2018-03-24 16:50] VITALS: BP 156/91
[2018-03-24] MEDS ORDERED: ACETAMINOPHEN 325 MG TABLET PO PRN (17:00)
[2018-03-24] MEDS ORDERED: MAG HYDROX/AL HYDROX/SIMETH 30 ML UDC PO PRN (17:00)
[2018-03-24] MEDS ORDERED: MAGNESIUM HYDROXIDE 30 ML UDC PO PRN (17:00)
[2018-03-24] MEDS ORDERED: MAGN400O6 PO (17:14)
[2018-03-24] MEDS ORDERED: ENOX40DI SQ (17:14)
[2018-03-24] MEDS ORDERED: QUET100T PO (17:14)
[2018-03-24] MEDS ORDERED: MUPI22OI2 TP (17:14)
[2018-03-24] MEDS ORDERED: ZOLP5TAB8 PO (17:14)
[2018-03-24] MEDS ORDERED: MAG30ORA GT (17:14)
[2018-03-24] MEDS ORDERED: INSU100V3 SQ (17:14)
[2018-03-24] MEDS ORDERED: HYDR-552 PO (17:14)
[2018-03-24 19:57] VITALS: BP 129/66
--- NOTE | 2018-03-24 20:05 | NUR ---
DR. ALANIS CALLED BACK, RE: MED RECON NEEDS TO BE DONE. SAID, " OKAY"
[2018-03-24] MEDS: TEMAZEPAM 7.5 MG CAPSULE PO PRN (20:28)
--- NOTE | 2018-03-24 22:03 | NUR ---
TEMAZEPAM 15 MG CAP PO GIVEN FOR SLEEP.
--- NOTE | 2018-03-25 06:04 | NUR ---
AT AROUND 0300RN OFELIA REPORTED PATIENT FELL ON THE FLOOR. BENJAMIN LYNCH WASSSISTING PATIENT AT THE TIME. SHE SAW PATIENT TRYING TO SLIDE DOWN THE NELL-CHAIR, CAME OVER TO HELP THE PATIENT. PATIENT IS CONFUSED AND WON'T ALLOW LIFE SCIENCE RESEARCH ASSISTANT TO HELP HIM GO BACK UP THE DUTCH-CHAIR, UNABLE TO FOLLOW INSTRUCTIONS DUE TO CONFUSION. BENJAMIN LYNCH CALLED YUMIKO GILBERT TO HELP HER. PATIENT BECAME ANGRY, WON'T ALLOW ANYONE TO HELP HIM, TRIED TO SWING ON SYED AND FELL TO THE FLOOR ON HIS BACK. PHYSICAL ASSESSMENT DONE. PATIENT SUSTAINED . SKIN TEAR ON THE LEFT ELBOW. PATIENT WAS ABLE TO GO BACK UP THE DUTCH-CHAIR WITH ASSISTANCE. ACTIVE ROM NOTED SATISFACTORY ON BOTH BUE AND BLE. NO NEW BRUISES NOTED. DENIES ANY PAIN AT THIS TIME. VITALS SATISFACTORY. RN PLATE SENSITIZER MARCO A THOMAS MADE AWARE. FAMILY MEMBER NOTIFIED ABOUT THE INCIDENT AND DR. HAMMER. WILL CONTINUE TO MONITOR FOR ANY CHANGES IN CURRENT CONDITION TO PREVENT/FALL/INJURY
--- NOTE | 2018-03-25 06:20 | NUR ---
FAMILY MEMBER CLAUDETTE HEDRICK, NOTIFIED ABOUT THE INCIDENT [phone]. NO ANSWER, LEFT A MESSAGE.
--- NOTE | 2018-03-25 06:21 | NUR ---
RN MRI MANAGER MARCO A THOMAS MADE AWARE OF THE INCIDENT
--- NOTE | 2018-03-25 06:22 | NUR ---
PAGED DR. ALANIS ABOUT THE FALL INCIDENT. AWAITING CALL BACK
--- NOTE | 2018-03-25 06:25 | NUR ---
PAGEJamari AND SPOKE WITH DR. ALANIS, REMINDED HIM AGAIN ABOUT MED RECON THAT NEEDS TO BE DONE SINCE YESTERDAY'S ADMISSION FROM DAY SHIFT.
[2018-03-25 08:00] VITALS: BP 126/73
[2018-03-25] MEDS ORDERED: MAGNESIUM HYDROXIDE 30 ML UDC PO PRN (08:30)
[2018-03-25] MEDS ORDERED: ACETAMINOPHEN 325 MG TABLET PO PRN (08:30)
[2018-03-25] MEDS ORDERED: HYDROCODONE/APAP 5/325MG 1 EACH TABLET PO PRN (08:30)
[2018-03-25] MEDS ORDERED: MAG HYDROX/AL HYDROX/SIMETH 30 ML UDC GT SCH (09:00)
[2018-03-25] MEDS ORDERED: DEXTROSE 50%-WATER 50 ML DISP.SYRIN IV PRN (10:30)
--- NOTE | 2018-03-25 10:54 | NUR ---
WOUND CARE CONSULT: PT PRESENTS WITH SACRAL DRY ABRASION AND LEFT ELBOW SKIN TEAR, PRESENT ON ADMISSION. PT ALSO HAS RAISED PURPLE AREA ON LEFT FOREARM. DEFER TO MD FOR RAISED AREA. PT MOVES ALMOST CONSTANTLY AND HAS UNPREDICTABLE MOVEMENTS. PT IS AMBULATORY AND SOMETIMES INCONTINENT OF URINE. ALL SKIN PROTECTION AND WOUND CARE RECOMMENDATIONS DISCUSSED WITH NURSING STAFF. WILL SEE PRN. MD IN AGREEMENT WITH PLAN OF CARE. Addendum: 03/25/18 at 1056 by RADHA XAVIER WNDNU Amended: Links added.
[2018-03-25] MEDS ORDERED: Z GUARD REMEDY 2 OZ OINT TP PRN (11:00)
[2018-03-25] MEDS: MUPIROCIN OINT 2% 22 GM TUBE SCH ×2 (11:53→21:32)
[2018-03-25] MEDS: ASPIRIN EC 325 MG TABLET.DR PO SCH (12:16)
[2018-03-25] MEDS: BETHANECHOL CHLORIDE (25 MG) 25 MG TABLET PO SCH ×2 (12:16→16:51)
[2018-03-25] MEDS: METFORMIN 500 MG TABLET PO SCH ×2 (12:16→16:51)
[2018-03-25] MEDS: LISINOPRIL (5MG) 5 MG TABLET PO SCH (12:17)
[2018-03-25] MEDS: ENOXAPARIN SODIUM 40 MG/0.4 ML DISP.SYRIN SQ SCH (12:24)
[2018-03-25] MEDS: BLOOD SUGAR DIAGNOSTIC 1 EACH STRIP VI SCH ×3 (12:24→22:09)
--- NOTE | 2018-03-25 12:34 | NUR ---
Update On Events leading to Admission and Discharge Plan: Pt has returned to the hospital within two weeks of his previous discharge date (03/13/18). Per hold, the pt is off of her medication following her most recent involuntary hospitalization. The current plan is to increase the patient on his medications and send him to a [facility] facility. Per pt, he was unable to ascertain where he wanted to be discharged to due to confusion. The pt appeared to be in a dysphoric mood and presented as irritable and agitated. Pt appeared to be ambulatory, disheveled but appropriately dressed. Pt is currently denying any suicidal or homicidal ideation as well as any visual or auditory hallucinations. MAC will work with the pt and the MD regarding appropriate discharge planning. SW will form a safe and proper discharge. Addendum: 03/25/18 at 1237 by SABINA WATTS Amendment: Per hold, the pt is disorganized, confused and combative. He is still currently on his medications but adjustments need to be made.
--- NOTE | 2018-03-25 12:34 | NUR ---
PSYCHOSOCIAL NOTE: Kelly Mcintosh MSW, attest to the patients previous psychosocial information dated on 03/03/18.
[2018-03-25] MEDS ORDERED: BETHANECHOL CHLORIDE 50 MG TABLET PO SCH (13:00)
[2018-03-25] MEDS ORDERED: ALBUTEROL FS 2.5 MG/3 ML VIAL.NEB NEB PRN (13:30)
[2018-03-25 16:00] VITALS: BP 133/49
--- NOTE | 2018-03-25 17:26 | NUR ---
PATIENT REFUSED ACCUCHECK. OFFERED 3X.
--- NOTE | 2018-03-25 19:30 | NUR ---
[facility] RN NOTE, RECEIVED PATIENT AWAKE AND IN BED, NO S/S OR COMPLAINTS OF PAIN AT THIS TIME. PATIENT IS DISPLAYING NO S/S OF APPARENT DISTRESS AT THIS TIME. PATIENT BREATHING IS UNLABORED WITH EQUAL RISE AND FALL CHEST. PATIENT IS ALERT AND ORIENTED X 1 ON ROOM AIR WITH A SPO2 96 %. PATIENT IS MED COMPLIANT, CONFUSED, DISORGANIZED, COOPERATIVE, ANXIOUS, GUARDED, AND NEEDS REORIENTATION. PATIENT DENIES SUICIDE IDEATIONS AND HOMICIDAL IDEATIONS AT THIS TIME. PATIENT EDUCATED ON THE USE OF THE CALL ALMANZAR. PATIENT BED SIDE RAILS UP X 2 FOR SAFETY, BED IS LOCKED AND LOW, WILL CONTINUE TO MONITOR AND MAINTAIN SAFETY WITH THE HELP OF SAFE.
[2018-03-25 19:59] VITALS: BP 125/59
[2018-03-25] MEDS: DIVALPROEX SODIUM 250 MG TABLET.DR PO SCH (21:27)
[2018-03-25] MEDS: TAMSULOSIN 0.4 MG CAP.SR.24H PO SCH (21:27)
[2018-03-25] MEDS ORDERED: QUETIAPINE FUMARATE 100 MG TABLET PO SCH (22:00)
--- NOTE | 2018-03-25 22:07 | NUR ---
[facility] RN NOTE, PERFORMED ACCU CHECK ON PATIENT WITH A BLOOD SUGAR RESULT OF 146. GAVE 2 UNITS OF REGULAR INSULIN PER SLIDING SCALE. ALSO GAVE A SNACK AND ORANGE JUICE TO PATIENT. WILL CONTINUE TO MONITOR THIS PATIENT.
[2018-03-25] MEDS: *INSULIN REGULAR(HUMULIN R)HUM 100 UNIT/ML VIAL SQ PRN (22:09)
--- NOTE | 2018-03-26 03:42 | NUR ---
[facility] RN NOTE, PATIENT HAS A COMPLAINT OF A HEADACHE AT 2 OUT 10 ON THE PAIN SCALE AND IS REQUESTING TYLENOL. PATIENT VITAL SIGNS ARE STABLE. GAVE TYLENOL 650MG PO Q6HR PRN ORDERED. WILL REASSESS PAIN AND I WILL CONTINUE TO MONITOR THIS PATIENT.
[2018-03-26] MEDS: BLOOD SUGAR DIAGNOSTIC 1 EACH STRIP VI SCH ×4 (07:46→22:24)
[2018-03-26 08:00] VITALS: BP 100/61
[2018-03-26] MEDS: DIVALPROEX SODIUM 250 MG TABLET.DR PO SCH (08:19)
[2018-03-26] MEDS: BETHANECHOL CHLORIDE (25 MG) 25 MG TABLET PO SCH ×3 (08:20→17:09)
[2018-03-26] MEDS: LISINOPRIL (5MG) 5 MG TABLET PO SCH (08:20)
[2018-03-26] MEDS: ASPIRIN EC 325 MG TABLET.DR PO SCH (08:20)
[2018-03-26] MEDS: METFORMIN 500 MG TABLET PO SCH ×2 (08:20→17:09)
[2018-03-26] MEDS: INSULIN REGULAR, HUMAN 100 UNIT/ML 3 ML VIAL SQ PRN ×3 (08:45→17:28)
--- NOTE | 2018-03-26 08:52 | NUR ---
DR. SANDOVAL MADE AWARE THAT BP MED NOT GIVEN FOR A LOW BP OF 100/61 AND PA OF 83.
[2018-03-26] MEDS: MUPIROCIN OINT 2% 22 GM TUBE SCH ×2 (08:53→21:11)
[2018-03-26] MEDS: ENOXAPARIN SODIUM 40 MG/0.4 ML DISP.SYRIN SQ SCH ×2 (08:55→09:00)
[2018-03-26] MEDS: clonazePAM 0.5 MG TABLET PO PRN (09:27)
[2018-03-26 16:00] VITALS: BP 101/66
[2018-03-26] MEDS ORDERED: DIVALPROEX SODIUM 250 MG TABLET.DR PO SCH (17:00)
[2018-03-26] MEDS: DIVALPROEX SODIUM 125 MG CAP.SPRINK PO SCH (17:09)
[2018-03-26] MEDS: QUETIAPINE FUMARATE 100 MG TABLET PO SCH (17:09)
[2018-03-26 20:00] VITALS: BP 102/57
[2018-03-26] MEDS: TAMSULOSIN 0.4 MG CAP.SR.24H PO SCH (22:23)
[2018-03-26] MEDS: TEMAZEPAM 7.5 MG CAPSULE PO PRN (22:23)
[2018-03-27] MEDS: BLOOD SUGAR DIAGNOSTIC 1 EACH STRIP VI SCH ×4 (07:45→21:28)
[2018-03-27 08:00] VITALS: BP 111/62
[2018-03-27] MEDS: ENOXAPARIN SODIUM 40 MG/0.4 ML DISP.SYRIN SQ SCH (08:26)
[2018-03-27] MEDS: DIVALPROEX SODIUM 125 MG CAP.SPRINK PO SCH ×3 (08:29→16:24)
[2018-03-27] MEDS: BETHANECHOL CHLORIDE (25 MG) 25 MG TABLET PO SCH ×3 (08:30→16:24)
[2018-03-27] MEDS: LISINOPRIL (5MG) 5 MG TABLET PO SCH (08:30)
[2018-03-27] MEDS: QUETIAPINE FUMARATE 100 MG TABLET PO SCH ×2 (08:30→16:24)
[2018-03-27] MEDS: ASPIRIN EC 325 MG TABLET.DR PO SCH (08:30)
[2018-03-27] MEDS: METFORMIN 500 MG TABLET PO SCH ×2 (08:30→16:24)
[2018-03-27] MEDS: MUPIROCIN OINT 2% 22 GM TUBE SCH ×2 (08:34→21:28)
[2018-03-27] MEDS: INSULIN REGULAR, HUMAN 100 UNIT/ML 3 ML VIAL SQ PRN (12:15)
--- NOTE | 2018-03-27 13:20 | NUR ---
PT. LEFT THE UNIT VIA AMBULANCE AND TRANSPORTED VIA A GURNEY WITH BELONGINGS. LEFT WITHOUT DISTRESS AND ON STABLE CONDITION. V/S TAKEN: BP 121/75, ID 52, RR 18, TEMP 98.1 AND OXYGEN SAT. 97%. Addendum: 03/27/18 at 1322 by LAURIE PERALTA RN NOT FOR THIS PT.
[2018-03-27 16:00] VITALS: BP 114/63
--- NOTE | 2018-03-27 16:44 | NUR ---
PT. IS HIGHLY AGITATED, AGGRESSIVE TO STAFFS, COMBATIVE, SCREAMING ANG YELLING. NOTIFIED SAM NIEVES AND ORDERED ZYPREXA 5 MG IM.
--- NOTE | 2018-03-27 16:50 | NUR ---
ZYPREXA 5 MG GIVEN IM AT THE RIGHT GLUTEUS. PT. IS STILL COMBATIVE TO STAFFS, AGGRESSIVE , SCREAMING ANG YELLING.
[2018-03-27] MEDS ORDERED: OLANZAPINE 10 MG VIAL IM ONE (17:00)
--- NOTE | 2018-03-27 17:00 | NUR ---
2 POINT RESTRAINTS USING VELCRO STARTED. PT. IS STILL AGGRESSIVE, COMBATIVE, SCREAMING, YELLING AND RESISTIVE AND NOT FOLLOWING DIRECTION. Addendum: 03/27/18 at 1710 by LAURIE PERALTA RN PT. IS SPITTING STAFFS ALSO. Addendum: 03/27/18 at 1733 by MARYSE BANKS RN RN-CO: DR NIEVES MADE AWARE IF THE 2 POINT RESTRAINT.
--- NOTE | 2018-03-27 17:10 | NUR ---
CALLED GLORIA DUNHAM AND WAS NOTIFIED ABOUT THE INCIDENT.
--- NOTE | 2018-03-27 17:25 | NUR ---
RN-CO: PATIENT IS NOW CALM , COOPERATIVE AND FOLLOW DIRECTIONS. 2 POINT VELCRO RESTRAINT WAS REMOVED. PT REMAINS AWAKE, RESPIRATION EVEN AND UNLABORED. OFFERED FOOD AND FLUIDS AND TOILETING. SKIN TEAR NOTED ON RIGHT FOREARM, 2CM IN LENGTH. TREATMENT RENDERED.
--- NOTE | 2018-03-27 17:45 | NUR ---
RN-CO: RN SPOKE TO THE PATIENT REGARDING THE INCIDENT, HE WAS VERY CONFUSED AND UNABLE TO PROCESS. NO S/S OF ACUTE DISTRESS NOTED. NO FACIAL GRIMACING NOTED.REMAINS CALM AT THIS TIME.
[2018-03-27 19:30] VITALS: BP 117/58
[2018-03-27 20:00] VITALS: BP 117/58
[2018-03-27] MEDS: TEMAZEPAM 7.5 MG CAPSULE PO PRN (21:26)
[2018-03-27] MEDS: TAMSULOSIN 0.4 MG CAP.SR.24H PO SCH (21:26)
[2018-03-27] MEDS: *INSULIN REGULAR(HUMULIN R)HUM 100 UNIT/ML VIAL SQ PRN (21:30)
[2018-03-28] MEDS: BLOOD SUGAR DIAGNOSTIC 1 EACH STRIP VI SCH ×4 (07:47→22:34)
[2018-03-28 08:00] VITALS: BP 128/86
[2018-03-28] MEDS: METFORMIN 500 MG TABLET PO SCH ×2 (09:21→17:14)
[2018-03-28] MEDS: DIVALPROEX SODIUM 125 MG CAP.SPRINK PO SCH ×3 (09:21→17:14)
[2018-03-28] MEDS: QUETIAPINE FUMARATE 100 MG TABLET PO SCH (09:21)
[2018-03-28] MEDS: BETHANECHOL CHLORIDE (25 MG) 25 MG TABLET PO SCH ×3 (09:22→17:14)
[2018-03-28] MEDS: LISINOPRIL (5MG) 5 MG TABLET PO SCH (09:22)
[2018-03-28] MEDS: ASPIRIN EC 325 MG TABLET.DR PO SCH (09:24)
[2018-03-28] MEDS: ENOXAPARIN SODIUM 40 MG/0.4 ML DISP.SYRIN SQ SCH (09:27)
[2018-03-28] MEDS: MUPIROCIN OINT 2% 22 GM TUBE SCH ×2 (09:27→21:56)
[2018-03-28] MEDS: INSULIN REGULAR, HUMAN 100 UNIT/ML 3 ML VIAL SQ PRN ×2 (12:04→17:42)
[2018-03-28] MEDS: clonazePAM 0.5 MG TABLET PO PRN (12:18)
--- NOTE | 2018-03-28 13:32 | NUR ---
GPS/RN PT IS SITTING IN ACTIVITY ROOM IN [facility] CHAIR, IS AGITATED NOT REDIRECTABLE, SWINGS ARMS AT STUFF/PATIENTS PASSING BY. DR BURGOS CALLED FOR THE ORDERS. NEW ORDERS RECEIVED AND CARRIED OUT
[2018-03-28] MEDS ORDERED: OLANZAPINE 10 MG VIAL IM ONE (14:00)
[2018-03-28 16:16] VITALS: BP 99/63
[2018-03-28] MEDS: QUETIAPINE FUMARATE 25 MG TABLET PO SCH (17:14)
[2018-03-28 17:53] LABS: BASOPHILS # (AUTO) 0.1 /CMM (0.0-0.2); BASOPHILS % (AUTO) 1.4 % (0.0-2.0); HEMATOCRIT 32 % (39-51); HEMOGLOBIN 10.6 g/dL (13.5-17.5); LYMPHOCYTES # (AUTO) 1.2 /CMM (0.8-4.8); LYMPHOCYTES % (AUTO) 22.6 % (20.0-44.0); MEAN CORPUSCULAR HEMOGLOBIN 29 PG (26.0-33.0); MEAN CORPUSCULAR HGB CONC 33 g/dl (31.0-36.0); MEAN CORPUSCULAR VOLUME 88 fL (80-96); MONOCYTES # (AUTO) 0.5 /CMM (0.1-1.30); MONOCYTES % (AUTO) 8.9 % (2.0-12.0); NEUTROPHILS % (AUTO) 58.1 % (43.0-81.0); PLATELET COUNT (AUTO) 257 /CMM (150-450); RDW COEFFICIENT OF VARIATION 14.6 (11.5-15.0); RED BLOOD CELL COUNT(AUTO) 3.66 MIL/uL (4.5-6.0); WHITE BLOOD COUNT (AUTO) 5.3 K/uL (4.3-11.0)
[2018-03-28 18:38] LABS: ALANINE AMINOTRANSFERASE 22 U/L (12-78); ALBUMIN 2.9 g/dL (3.4-5.0); ALKALINE PHOSPHATASE 60 U/L (46-116); ASPARTATE AMINOTRANSFERASE 22 U/L (15-37); BILIRUBIN,TOTAL 0.8 mg/dL (0.2-1.0); CARBON DIOXIDE 25 mmol/L (21-32); CHLORIDE 103 mmol/L (98-107); CREATININE 0.8 mg/dL (0.6-1.3); GLUCOSE 138 mg/dL (74-106); MAGNESIUM 1.9 mg/dL (1.8-2.4); POTASSIUM 3.9 mmol/L (3.5-5.1); SODIUM SERUM 139 mmol/L (136-145); TOTAL PROTEIN, SERUM 7.5 g/dL (6.4-8.2); UREA NITROGEN, BLOOD 27 mg/dL (7-18)
[2018-03-28 19:30] VITALS: BP 122/59
[2018-03-28] MEDS: DIVALPROEX SODIUM 250 MG TABLET.DR PO SCH (20:18)
[2018-03-28] MEDS: TAMSULOSIN 0.4 MG CAP.SR.24H PO SCH (21:10)
[2018-03-28] MEDS: TEMAZEPAM 7.5 MG CAPSULE PO PRN (21:11)
--- NOTE | 2018-03-29 07:10 | NUR ---
GPS RN NOTE PATIENT IS RECEIVED IN BED SLEEPING. RESPONSIVE TO VERBAL AND TACTILE STIMULI. RESPIRATION REGULAR AND UNLABORED. PATIENT IN NO APPARENT DISTRESS. BED LOW AND LOCKED. WILL CONTINUE TO MONITOR.
[2018-03-29 08:00] VITALS: BP 118/59
[2018-03-29] MEDS: DIVALPROEX SODIUM 125 MG CAP.SPRINK PO SCH ×3 (09:01→16:16)
[2018-03-29] MEDS: LISINOPRIL (5MG) 5 MG TABLET PO SCH (09:01)
[2018-03-29] MEDS: BETHANECHOL CHLORIDE (25 MG) 25 MG TABLET PO SCH ×3 (09:01→16:16)
[2018-03-29] MEDS: ASPIRIN EC 325 MG TABLET.DR PO SCH (09:01)
[2018-03-29] MEDS: QUETIAPINE FUMARATE 25 MG TABLET PO SCH ×3 (09:01→16:16)
[2018-03-29] MEDS: METFORMIN 500 MG TABLET PO SCH ×2 (09:01→16:16)
[2018-03-29] MEDS: ENOXAPARIN SODIUM 40 MG/0.4 ML DISP.SYRIN SQ SCH (09:04)
[2018-03-29] MEDS: BLOOD SUGAR DIAGNOSTIC 1 EACH STRIP VI SCH ×4 (09:16→22:00)
[2018-03-29] MEDS: clonazePAM 0.5 MG TABLET PO PRN (10:48)
[2018-03-29 16:05] VITALS: BP 108/59
[2018-03-29] MEDS: MUPIROCIN OINT 2% 22 GM TUBE SCH ×2 (16:30→21:16)
[2018-03-29] MEDS: INSULIN REGULAR, HUMAN 100 UNIT/ML 3 ML VIAL SQ PRN (17:23)
--- NOTE | 2018-03-29 17:36 | NUR ---
GPS RN RECEIVED NEW ORDER FROM DR SANDOVAL FOR BOOST. THE ORDER IS READ BACK, VERIFIED. NOTED AND CARRIED OUT.
[2018-03-29 19:45] VITALS: BP 95/53
[2018-03-29] MEDS: DIVALPROEX SODIUM 250 MG TABLET.DR PO SCH (19:52)
[2018-03-29] MEDS: TEMAZEPAM 7.5 MG CAPSULE PO PRN (19:53)
[2018-03-29] MEDS ORDERED: DIVALPROEX SODIUM 250 MG TABLET.DR PO SCH (20:00)
--- NOTE | 2018-03-29 20:00 | NUR ---
GPS RN NOTE, RECEIVED PATIENT AWAKE AND IN CHAIR, NO S/S OR COMPLAINTS OF PAIN AT THIS TIME. PATIENT IS DISPLAYING NO S/S OF APPARENT DISTRESS. PATIENT BREATHING IS UNLABORED WITH EQUAL RISE AND FALL CHEST. PATIENT IS ALERT AND ORIENTED X 1 ON ROOM AIR WITH A SPO2 96 %. PATIENT IS CONFUSED, DISORGANIZED, AND UNABLE TO ASSESS THOUGHTS. PATIENT IS EASILY AGITATED AND REFUSED SKIN REASSESSMENT PHOTOS. PATIENT EDUCATED ON THE USE OF THE CALL ALMANZAR. PATIENT BED SIDE RAILS UP X 2 FOR SAFETY, BED IS LOCKED AND LOW, WILL CONTINUE TO MONITOR AND MAINTAIN SAFETY.
[2018-03-29] MEDS: TAMSULOSIN 0.4 MG CAP.SR.24H PO SCH (21:10)
--- NOTE | 2018-03-29 22:01 | NUR ---
BS 117 MG/DL NO COVERAGE REQUIRED. PT. NOW SLEEPING IN NO APPARENT DISTRESS.
[2018-03-30] MEDS: clonazePAM 0.5 MG TABLET PO PRN (04:25)
--- NOTE | 2018-03-30 04:31 | NUR ---
PT AWAKE, AGITATED, COMBATIVE WITH STAFF WHEN TRYING TO ASSIST PATIENT REPOSITIONING. KLONOPIN PRN GIVEN.
[2018-03-30 08:00] VITALS: BP 122/70
[2018-03-30] MEDS: BLOOD SUGAR DIAGNOSTIC 1 EACH STRIP VI SCH ×4 (08:22→21:38)
[2018-03-30] MEDS: ASPIRIN EC 325 MG TABLET.DR PO SCH (08:22)
[2018-03-30] MEDS: DIVALPROEX SODIUM 125 MG CAP.SPRINK PO SCH ×3 (08:22→16:48)
[2018-03-30] MEDS: METFORMIN 500 MG TABLET PO SCH ×2 (08:23→16:48)
[2018-03-30] MEDS: LISINOPRIL (5MG) 5 MG TABLET PO SCH (08:23)
[2018-03-30] MEDS: BETHANECHOL CHLORIDE (25 MG) 25 MG TABLET PO SCH ×3 (08:23→16:48)
[2018-03-30] MEDS: MUPIROCIN OINT 2% 22 GM TUBE SCH ×2 (08:46→21:47)
[2018-03-30] MEDS: QUETIAPINE FUMARATE 25 MG TABLET PO SCH ×3 (08:46→16:48)
[2018-03-30] MEDS: ENOXAPARIN SODIUM 40 MG/0.4 ML DISP.SYRIN SQ SCH (09:00)
[2018-03-30] MEDS: GLUCERNA SHAKE 237 ML CAN PO SCH ×2 (09:31→16:49)
[2018-03-30] MEDS: INSULIN REGULAR, HUMAN 100 UNIT/ML 3 ML VIAL SQ PRN ×2 (13:00→17:22)
[2018-03-30 16:00] VITALS: BP 110/75
[2018-03-30 19:50] VITALS: BP 107/58
--- NOTE | 2018-03-30 20:15 | NUR ---
GPS RN NOTE, RECEIVED PATIENT AWAKE AND IN CHAIR IN TV ROOM, NO S/S OR COMPLAINTS OF PAIN AT THIS TIME. NO S/S OF APPARENT DISTRESS. BREATHING UNLABORED WITH EQUAL RISE AND FALL CHEST. PATIENT IS ALERT AND ORIENTED X 1 ON ROOM AIR WITH A SPO2 998 %. PATIENT IS PLEASANT UPON APPROACH, LESS CONFUSED, CALM, COOPERATIVE WITH FREQUENT REDIRECTION AND MADE AF FEW SIMPLE, APPROPRIATE VERBAL COMMENTS. PATIENT DENIES SUICIDE IDEATIONS AND HOMICIDAL IDEATIONS AT THIS TIME. PATIENT EDUCATED ON THE USE OF THE CALL ALMANZAR. PATIENT BED SIDE RAILS UP X 2 FOR SAFETY, BED IS LOCKED AND LOW, WILL CONTINUE TO MONITOR AND MAINTAIN SAFETY.
[2018-03-30] MEDS: TAMSULOSIN 0.4 MG CAP.SR.24H PO SCH (21:23)
[2018-03-30] MEDS: DIVALPROEX SODIUM 250 MG TABLET.DR PO SCH (21:23)
[2018-03-30] MEDS: TEMAZEPAM 7.5 MG CAPSULE PO PRN (21:23)
[2018-03-30] MEDS: *INSULIN REGULAR(HUMULIN R)HUM 100 UNIT/ML VIAL SQ PRN (21:42)
--- NOTE | 2018-03-30 21:45 | NUR ---
BLOOD SUGAR 254, 6 UNITS REGULAR INSULIN GIVEN PER SLIDING SCALE.
--- NOTE | 2018-03-31 06:47 | NUR ---
PT WAS INCONTINENT, UNABLE TO COLLECT URINE.
[2018-03-31 08:00] VITALS: BP 121/56
--- NOTE | 2018-03-31 08:16 | NUR ---
[id number]: BLOOD SUGRA IS 116 MG/DL AND NO INSULIN COVERAGE REQUIRED AT THIS TIME
[2018-03-31] MEDS: BLOOD SUGAR DIAGNOSTIC 1 EACH STRIP VI SCH ×4 (08:18→22:05)
[2018-03-31] MEDS: GLUCERNA SHAKE 237 ML CAN PO SCH ×2 (08:19→16:52)
[2018-03-31] MEDS: ENOXAPARIN SODIUM 40 MG/0.4 ML DISP.SYRIN SQ SCH (08:20)
[2018-03-31] MEDS: QUETIAPINE FUMARATE 25 MG TABLET PO SCH ×3 (08:20→16:52)
[2018-03-31] MEDS: ASPIRIN EC 325 MG TABLET.DR PO SCH (08:20)
[2018-03-31] MEDS: DIVALPROEX SODIUM 125 MG CAP.SPRINK PO SCH ×4 (08:21→20:42)
[2018-03-31] MEDS: METFORMIN 500 MG TABLET PO SCH ×2 (08:21→16:52)
[2018-03-31] MEDS: LISINOPRIL (5MG) 5 MG TABLET PO SCH (08:21)
[2018-03-31] MEDS: BETHANECHOL CHLORIDE (25 MG) 25 MG TABLET PO SCH ×3 (08:22→16:51)
[2018-03-31] MEDS: MUPIROCIN OINT 2% 22 GM TUBE SCH ×2 (08:31→21:30)
[2018-03-31] MEDS ORDERED: OLANZAPINE 10 MG VIAL IM STA (10:34)
--- NOTE | 2018-03-31 10:47 | NUR ---
[id number]: PT IS ANXIOUS, RESTLESS, IRRITABLE, UNCOOPERATIVE, AGITATED, AGGRESSIVE WITH STAFF, FLARING ARMS IN A THREATENING MANNER. PT IS UNABLE TO FOLLOW DIRECTIVES. PROVIDE LESS RESTRICTIVE MEASURES. DECREASED EXTERNAL STIMULI BY ESCORTING PT BACK TO ROOM. NOTIFIED DR. NIEVES ABOUT PT'S BEHAVIOR AND ORDERED ZYPREXA 5 MG IM AND WILL CONTINUE TO MONITOR FOR EFFECTIVENESS OF MEDICATION
--- NOTE | 2018-03-31 12:05 | NUR ---
[id number]: BLOOD SUGAR IS 141 MG/DL AND PT REFUSED INSULIN AT THIS TIME AND BECAME MORE IRRITABLE
[2018-03-31] MEDS: INSULIN REGULAR, HUMAN 100 UNIT/ML 3 ML VIAL SQ PRN (12:19)
[2018-03-31 16:00] VITALS: BP 109/74
--- NOTE | 2018-03-31 17:51 | NUR ---
[id number]: BLOOD SUGAR IS 128 MG/DL AND NO INSULIN REQUIRED AT THIS TIME
[2018-03-31 20:28] VITALS: BP 134/79
--- NOTE | 2018-03-31 20:40 | NUR ---
RN NOTES, NOTED PATIENT AGITATED, TRYING TO GET UP FROM THE CHAIR AND TRYING TO HIT STAFF, REDIRECTION OF BEHAVIOR AND ASSURANCE PROVIDED, STILL PATIENT CONTINUE AGITATED AND COMBATIVE, KLONOPIN ADMINISTERED ORDERED.
[2018-03-31] MEDS: clonazePAM 0.5 MG TABLET PO PRN (20:42)
[2018-03-31] MEDS: DIVALPROEX SODIUM 250 MG TABLET.DR PO SCH (20:49)
[2018-03-31] MEDS: TAMSULOSIN 0.4 MG CAP.SR.24H PO SCH (21:30)
--- NOTE | 2018-03-31 21:30 | NUR ---
RN NOTES, PATIENT NOTED RELAXED AND SLEEPING AT THIS TIME, NO EPISODES OF DISRUPTIVE BEHAVIOR NOTED, MEDICATION EFFECTIVE, WILL CONTINUE TO MONITOR CLOSELY.
[2018-03-31] MEDS: *INSULIN REGULAR(HUMULIN R)HUM 100 UNIT/ML VIAL SQ PRN (22:08)
[2018-03-31] MEDS: TEMAZEPAM 7.5 MG CAPSULE PO PRN (23:09)
[2018-04-01] MEDS: BLOOD SUGAR DIAGNOSTIC 1 EACH STRIP VI SCH ×4 (07:30→21:48)
[2018-04-01 08:00] VITALS: BP 117/58
[2018-04-01] MEDS: GLUCERNA SHAKE 237 ML CAN PO SCH ×2 (08:00→16:56)
[2018-04-01] MEDS: ENOXAPARIN SODIUM 40 MG/0.4 ML DISP.SYRIN SQ SCH (09:43)
[2018-04-01] MEDS: METFORMIN 500 MG TABLET PO SCH ×2 (09:45→16:52)
[2018-04-01] MEDS: QUETIAPINE FUMARATE 25 MG TABLET PO SCH ×3 (09:45→16:52)
[2018-04-01] MEDS: ASPIRIN EC 325 MG TABLET.DR PO SCH (09:45)
[2018-04-01] MEDS: MUPIROCIN OINT 2% 22 GM TUBE SCH ×2 (09:46→21:19)
[2018-04-01] MEDS: BETHANECHOL CHLORIDE (25 MG) 25 MG TABLET PO SCH ×3 (09:53→16:52)
[2018-04-01] MEDS: LISINOPRIL (5MG) 5 MG TABLET PO SCH (09:53)
[2018-04-01] MEDS: DIVALPROEX SODIUM 125 MG CAP.SPRINK PO SCH ×2 (13:52→16:52)
[2018-04-01] MEDS: clonazePAM 0.5 MG TABLET PO PRN ×2 (13:52→18:30)
--- NOTE | 2018-04-01 15:19 | NUR ---
SW contacted Bindu from [facility] ([phone]) and discussed the pt returning to their facility when he is discharged from [facility].
--- NOTE | 2018-04-01 15:20 | NUR ---
MAC called the pts daughter, Gena ([phone]), and informed her that the pt is being discharged tomorrow.
--- NOTE | 2018-04-01 15:21 | NUR ---
MAC called the pts daughter, Clarisa ([phone]), and informed her that the pt is going to be transferred back to [facility] ([facility]) tomorrow.
[2018-04-01 16:00] VITALS: BP_SYST 120; BP_SYST 145; BP_DIAS 65; BP_DIAS 69
[2018-04-01] MEDS: *INSULIN REGULAR(HUMULIN R)HUM 100 UNIT/ML VIAL SQ PRN ×2 (17:41→22:21)
[2018-04-01] MEDS: TAMSULOSIN 0.4 MG CAP.SR.24H PO SCH (21:19)
[2018-04-01] MEDS: DIVALPROEX SODIUM 250 MG TABLET.DR PO SCH (21:19)
[2018-04-01 21:21] VITALS: BP 95/54
[2018-04-01] MEDS ORDERED: INSULIN REGULAR, HUMAN 100 UNIT/ML 3 ML VIAL ONE (22:14)
[2018-04-01] MEDS: TEMAZEPAM 7.5 MG CAPSULE PO PRN (22:23)
--- NOTE | 2018-04-02 06:39 | NUR ---
GPS-RN OBTAINED ORDER FROM RE OJEDA TO DO IN AND OUT CATHETERIZATION X1 FOR URINE COLLECTION. UNABLE TO OBTAIN URINE. WILL ENDORSE TO THE DAY SHIFT NURSE.
[2018-04-02] MEDS: BLOOD SUGAR DIAGNOSTIC 1 EACH STRIP VI SCH ×2 (07:30→12:46)
--- NOTE | 2018-04-02 07:45 | NUR ---
Received pt up in elaine chair ready for breakfast, restles, but redirectable, alert oriented x1 verbally responsive, no distress.
[2018-04-02] MEDS: GLUCERNA SHAKE 237 ML CAN PO SCH (08:00)
[2018-04-02] MEDS: LISINOPRIL (5MG) 5 MG TABLET PO SCH (08:15)
[2018-04-02] MEDS: METFORMIN 500 MG TABLET PO SCH (08:15)
[2018-04-02] MEDS: DIVALPROEX SODIUM 125 MG CAP.SPRINK PO SCH ×2 (08:15→13:00)
[2018-04-02] MEDS: QUETIAPINE FUMARATE 25 MG TABLET PO SCH ×2 (08:16→13:00)
[2018-04-02] MEDS: BETHANECHOL CHLORIDE (25 MG) 25 MG TABLET PO SCH ×2 (08:16→13:00)
[2018-04-02] MEDS: ENOXAPARIN SODIUM 40 MG/0.4 ML DISP.SYRIN SQ SCH (08:16)
[2018-04-02] MEDS: ASPIRIN EC 325 MG TABLET.DR PO SCH (08:19)
[2018-04-02] MEDS: MUPIROCIN OINT 2% 22 GM TUBE SCH (09:09)
[2018-04-02 09:20] VITALS: BP 127/68
--- NOTE | 2018-04-02 11:45 | NUR ---
RN-CO: Patient is calm and cooperative . No aggression noted. Denied suicidal and homicidal ideation, denied auditory and visual hallucinations. He was seen and examined by Dr Zarate , covering for Dr Carnes and ordered to discontinue hold and discharge the patient to [facility]. SNF, noted and carried out. He was medically cleared by Dr Hensley Pt is unable to sign the discharge papers because he is alert to name only.
--- NOTE | 2018-04-02 12:30 | NUR ---
Pt is stable no s/s of agresion, compliant with meds, reposrt was called to Irene CALDERON at [facility].
--- NOTE | 2018-04-02 12:45 | NUR ---
Pt is being transfer now, ambulance here to pick him up, pt is stable no distress, all paper work packet given to ambulance no distress.
--- NOTE | 2018-04-02 14:04 | NUR ---
MAC sent a fax to [facility] at the fax number: [phone] upon the pt's discharge.
--- NOTE | 2018-04-02 14:07 | NUR ---
Discharge Note: Pt was discharged to [facility] (SNF) located at [address], [place] [address]; ([phone]). Pt was transported via [facility] (Trip #[id number]) at 11AM. Pts daughter, Gena ([phone]), was notified of this placement. Upon discharge, pt was in a euthymic mood with a flat affect. Pt denied having any hallucinations and denied both suicidal and homicidal ideation. Pt will be under the care of his psychiatrist, Dr. Carnes, located at [address], [place] [address]; ) and his satellite dish repairer, Dr. Monae, located at [address], [address], [place] [address], ).
[2018-04-02] MEDS ORDERED: DIVA500T2 PO (22:50)
[2018-04-02] MEDS ORDERED: DULCOLAX PR (22:50)
[2018-04-02] MEDS ORDERED: DOCU-141 PO (22:50)
[2018-04-02] MEDS ORDERED: TEMA15CA5 PO (22:50)
[2018-04-02] MEDS ORDERED: NA P133E RC (22:50)
[2018-04-02] MEDS ORDERED: CLON0.5T PO (22:50)
== END 2018-04-02 13:00 | DRG 885 ==
LOC: GPS 15:04
PROVIDERS: ADMIT Psychiatry & Neurology Psychiatry; ATTEND Internal Medicine
DX: F29 Unspecified psychosis not due to a substance or known physiological condition (principal); N17.0 Acute kidney failure with tubular necrosis; E44.0 Moderate protein-calorie malnutrition; F03.91 Unspecified dementia, unspecified severity, with behavioral disturbance; F41.9 Anxiety disorder, unspecified; E11.9 Type 2 diabetes mellitus without complications; F20.9 Schizophrenia, unspecified; F32.9 Major depressive disorder, single episode, unspecified; I10 Essential (primary) hypertension; J45.909 Unspecified asthma, uncomplicated; N40.0 Benign prostatic hyperplasia without lower urinary tract symptoms; Z79.899 Other long term (current) drug therapy; Z91.19 Patient's noncompliance with other medical treatment and regimen; Z73.6 Limitation of activities due to disability; E88.09 Other disorders of plasma-protein metabolism, not elsewhere classified; D63.8 Anemia in other chronic diseases classified elsewhere; Z68.21 Body mass index [BMI] 21.0-21.9, adult; Z79.84 Long term (current) use of oral hypoglycemic drugs
CPT/HCPCS: 36415; 80053-TC; 80164-TC; 82962-TC; 83735-TC; 85025-TC; A6402; J1650; J1815; J3490

== ENCOUNTER 2018-04-02 21:48 | Emergency (ER) | payer MEDICARE ==
[~2018-04-02] VITALS: Ht 175.3 cm; Wt 64.4 kg
[~2018-04-02 21:48] MED LIST changes: +ENOX40DI SQ; -GLIP5TAB13 PO; +HYDR-552 PO; +INSU100V3 SQ; +MAG30ORA GT; +MAGN400O6 PO; +MUPI22OI2 TP; -MUPI22OI7; -PANT40TA4 PO; -QUET50TA PO; +ZOLP5TAB8 PO
--- NOTE | 2018-04-02 22:03 | NUR ---
BIB PRIVATE AMBULANCE FROM [facility]. C/C OF AGGRESSION AND MED CLEARANCE FOR 5150. PT AA/OX1 TO FIRST NAME. NAD. VSS. NO S/S OF SOB. AWAITING MD CHAPMAN AND ORDERS.
--- NOTE | 2018-04-02 22:27 | NUR ---
PT HAS BEEN CALM AND COOPERATIVE. NO SIGNS OF AGGRESSION.
[2018-04-02] MEDS ORDERED: DIVA500T2 PO (22:50)
[2018-04-02] MEDS ORDERED: CLON0.5T PO (22:50)
[2018-04-02] MEDS ORDERED: DULCOLAX PR (22:50)
[2018-04-02] MEDS ORDERED: NA P133E RC (22:50)
[2018-04-02] MEDS ORDERED: DOCU-141 PO (22:50)
[2018-04-02] MEDS ORDERED: TEMA15CA5 PO (22:50)
[2018-04-02 23:14] VITALS: BP 124/70
--- NOTE | 2018-04-02 23:42 | NUR ---
PT GOING TO ROOM 145C [facility]EPT[facility] .
--- NOTE | 2018-04-03 00:05 | NUR ---
REPORT GIVEN TO [facility] YUMIKO ALLEN.
--- NOTE | 2018-04-03 00:08 | NUR ---
REPORT WAS GIVEN TO [facility] EMT. COPY OF ALL PAPERWORK GIVEN TO EMT. ORIGINAL HOLD WITH PAPERWORK. PT TRANSFERRED OUT VIA GURNEY. VSS. NAD NOTED. PT APPEARS CALM AND COOPERATIVE.
== END 2018-04-03 00:15 ==
LOC: ER 21:50
DX: F29 Unspecified psychosis not due to a substance or known physiological condition (principal); R45.1 Restlessness and agitation; E11.9 Type 2 diabetes mellitus without complications; I10 Essential (primary) hypertension; Z79.4 Long term (current) use of insulin; Z79.82 Long term (current) use of aspirin
CPT/HCPCS: A4606; Z7610